=== PATIENT | male | born 1975 | race Caucasian/White ===

== ENCOUNTER 2018-02-11 20:18 | Inpatient (IN) | payer MEDICARE, MEDICAID ==
[~2018-02-11] VITALS: Ht 165.1 cm; Wt 63.5 kg
[~2018-02-11 20:18] MED LIST: AMLO-511 PO; DIVA500T52 PO; OLAN20TA2 PO; PANT40TA25 PO
[2018-02-12] MEDS ORDERED: DiphenhydrAMINE HCL 50 MG/ML VIAL IM ONE
[2018-02-12] MEDS ORDERED: HALOPERIDOL LACTATE 5 MG/ML VIAL IM ONE
[2018-02-12] MEDS ORDERED: LORazepam 2 MG/ML VIAL IM ONE
[2018-02-12 04:20] LABS: BASOPHILS % (AUTO) 0.9 % (0.0-2.0); EOSINOPHILS % (AUTO) 5.6 % (1.0-6.0); HEMATOCRIT 30.9 % (41-53); HEMOGLOBIN 10.6 g/dL (13.5-17.5); LYMPHOCYTES # (AUTO) 2.7 K/uL (1.0-4.8); LYMPHOCYTES % (AUTO) 35.4 % (22.0-44.0); MEAN CORPUSCULAR HEMOGLOBIN 31.8 pg (26.0-34.0); MEAN CORPUSCULAR HGB CONC 34.3 G/dL (31.0-37.0); MEAN CORPUSCULAR VOLUME 93 fL (80-100); MONOCYTES # (AUTO) 0.8 K/uL (0.1-1.0); MONOCYTES % (AUTO) 10.3 % (2.0-9.0); NEUTROPHILS # (AUTO) 3.7 K/uL (1.8-7.7); NEUTROPHILS % (AUTO) 47.8 % (40.0-70.0); PLATELET COUNT (AUTO) 249 K/uL (150-450); RED BLOOD CELL COUNT(AUTO) 3.33 MIL/uL (4.50-5.90); RED CELL DISTRIBUTION WIDTH 16.1 % (11.5-14.5)
[2018-02-12 04:27] LABS: ANION GAP 5 mmol/L (8-16); CARBON DIOXIDE 26 mmol/L (22-29); CHLORIDE 109 mmol/L (98-107); GLOMERULAR FILTR. RATE CALC > 60 mL/min (>60); GLUCOSE,RANDOM 93 mg/dL (70-110); POTASSIUM 4.1 mmol/L (3.5-5.1); SODIUM SERUM 140 mmol/L (136-145); UREA NITROGEN, BLOOD 17 mg/dL (7-18)
[2018-02-12 04:34] LABS: ALANINE AMINOTRANSFERASE 16 U/L (12-78); ALBUMIN 2.6 g/dL (3.4-5.0); ALKALINE PHOSPHATASE 58 U/L (46-116); ASPARTATE AMINOTRANSFERASE 23 U/L (15-37); BILIRUBIN,TOTAL 0.2 mg/dL (0.1-1.0); TOTAL PROTEIN, SERUM 5.9 g/dL (6.4-8.2); VALPROIC ACID 28 mcg/mL (50-100)
[2018-02-12 05:03] LABS: AMPHET/METH SCREEN,URINE NEGATIVE (NEGATIVE); BARBITURATE SCREEN, URINE NEGATIVE (NEGATIVE); BENZODIAZEPINES SCREEN,URINE NEGATIVE (NEGATIVE); CANNABINOID SCREEN,URINE NEGATIVE (NEGATIVE); COCAINE SCREEN,URINE NEGATIVE (NEGATIVE); METHADONE SCREEN, URINE NEGATIVE (NEGATIVE); OPIATE SCREEN,URINE NEGATIVE (NEGATIVE)
[2018-02-12 05:05] LABS: PHENCYCLIDINE SCREEN,URINE NEGATIVE (NEGATIVE)
[2018-02-12] MEDS: LORazepam 2 MG TABLET PO PRN ×2 (10:08→16:25)
[2018-02-12] MEDS: HALOPERIDOL 5 MG TABLET PO PRN (10:08)
[2018-02-12 11:42] VITALS: BP 139/78
[2018-02-12] MEDS ORDERED: PNEUMOCOCCAL VACCINE POLYVALENT 0.5 ML VIAL [PPSV23] IM ONE (11:45)
[2018-02-12] MEDS ORDERED: CloNIDine HCL 0.1 MG TABLET PO PRN (14:00)
[2018-02-12] MEDS ORDERED: ACETAMINOPHEN 325 MG TABLET PO PRN (14:00)
[2018-02-12] MEDS ORDERED: ONDANSETRON HCL 4 MG TABLET PO PRN (14:00)
[2018-02-12] MEDS ORDERED: MAG HYDROX/AL HYDROX/SIMETH ES 30 ML SUSPENSION UDCUP PO PRN (14:00)
[2018-02-12] MEDS ORDERED: PETROLATUM,WHITE 71 GM JELLY TP PRN (14:00)
[2018-02-12] MEDS ORDERED: IBUPROFEN 600 MG TABLET PO PRN (14:00)
[2018-02-12] MEDS ORDERED: BACITRACIN 28.4 GM OINTMENT TP PRN (14:00)
[2018-02-12] MEDS ORDERED: BENZOCAINE/MENTHOL LOZENGE MM PRN (14:00)
[2018-02-12] MEDS ORDERED: LOPERAMIDE HCL 2 MG CAPSULE PO PRN (14:00)
[2018-02-12] MEDS ORDERED: ALBUTEROL SULFATE HFA 90 MCG/PUFF 8 GM INHALER IH PRN (14:00)
[2018-02-12] MEDS ORDERED: MAGNESIUM HYDROXIDE SUSPENSION 30 ML UDCUP PO PRN (14:00)
[2018-02-12 16:00] VITALS: BP 133/85
[2018-02-12 19:00] VITALS: BP 116/73
[2018-02-12] MEDS: DIVALPROEX SODIUM 500 MG ER TABLET PO SCH (20:36)
[2018-02-12] MEDS: OLANZapine 10 MG TABLET PO SCH (20:36)
[2018-02-13 04:21] VITALS: BP 136/98
[2018-02-13] MEDS: LORazepam 2 MG TABLET PO PRN ×2 (08:11→17:08)
[2018-02-13] MEDS: DOCUSATE SODIUM 100 MG CAPSULE PO SCH (08:11)
[2018-02-13] MEDS: AmLODIPine BESYLATE 5 MG TABLET PO SCH (08:11)
[2018-02-13] MEDS: OMEPRAZOLE 20 MG CAPSULE PO SCH (08:11)
[2018-02-13] MEDS: HALOPERIDOL 5 MG TABLET PO PRN (08:11)
[2018-02-13] MEDS: BACITRACIN 28.4 GM OINTMENT TP SCH ×2 (08:12→17:08)
[2018-02-13 09:21] LABS: THYROID STIMULATING HORMONE 1.76 uIU/mL (0.36-3.74)
[2018-02-13 16:00] VITALS: BP 129/85
[2018-02-13] MEDS: DIVALPROEX SODIUM 500 MG ER TABLET PO SCH (20:29)
[2018-02-13] MEDS: OLANZapine 10 MG TABLET PO SCH (20:29)
[2018-02-14 00:06] VITALS: BP 119/76
[2018-02-14 08:13] VITALS: BP 128/79
[2018-02-14] MEDS: DOCUSATE SODIUM 100 MG CAPSULE PO SCH (08:20)
[2018-02-14] MEDS: AmLODIPine BESYLATE 5 MG TABLET PO SCH (08:20)
[2018-02-14] MEDS: LORazepam 2 MG TABLET PO PRN ×2 (08:20→17:01)
[2018-02-14] MEDS: OMEPRAZOLE 20 MG CAPSULE PO SCH (08:20)
[2018-02-14] MEDS: HALOPERIDOL 5 MG TABLET PO PRN (08:20)
[2018-02-14] MEDS: BACITRACIN 28.4 GM OINTMENT TP SCH ×2 (08:21→17:01)
[2018-02-14 17:08] VITALS: BP 129/79
[2018-02-14] MEDS: DIVALPROEX SODIUM 500 MG ER TABLET PO SCH (20:46)
[2018-02-14] MEDS: OLANZapine 10 MG TABLET PO SCH (20:46)
[2018-02-15 02:31] VITALS: BP 129/78
[2018-02-15 08:13] VITALS: BP 126/72
[2018-02-15] MEDS: AmLODIPine BESYLATE 5 MG TABLET PO SCH (08:48)
[2018-02-15] MEDS: OMEPRAZOLE 20 MG CAPSULE PO SCH (08:48)
[2018-02-15] MEDS: DOCUSATE SODIUM 100 MG CAPSULE PO SCH (08:48)
[2018-02-15] MEDS: BACITRACIN 28.4 GM OINTMENT TP SCH ×2 (09:03→16:23)
[2018-02-15] MEDS: HALOPERIDOL 5 MG TABLET PO PRN ×2 (09:09→16:23)
[2018-02-15] MEDS: LORazepam 2 MG TABLET PO PRN ×2 (09:09→16:23)
[2018-02-15 16:43] VITALS: BP 118/77
[2018-02-15] MEDS: OLANZapine 10 MG TABLET PO SCH (20:19)
[2018-02-15] MEDS: DIVALPROEX SODIUM 500 MG ER TABLET PO SCH (20:19)
[2018-02-16 01:31] VITALS: BP 116/73
[2018-02-16] MEDS: OMEPRAZOLE 20 MG CAPSULE PO SCH (09:10)
[2018-02-16] MEDS: DOCUSATE SODIUM 100 MG CAPSULE PO SCH (09:10)
[2018-02-16] MEDS: HALOPERIDOL 5 MG TABLET PO PRN (09:10)
[2018-02-16] MEDS: AmLODIPine BESYLATE 5 MG TABLET PO SCH (09:10)
[2018-02-16] MEDS: LORazepam 2 MG TABLET PO PRN ×3 (09:10→21:07)
[2018-02-16 09:23] VITALS: BP 139/91
[2018-02-16 16:00] VITALS: BP 128/85
[2018-02-16] MEDS: DIVALPROEX SODIUM 500 MG ER TABLET PO SCH (21:07)
[2018-02-16] MEDS: OLANZapine 10 MG TABLET PO SCH (21:07)
[2018-02-16] MEDS: ZOLPIDEM TARTRATE 10 MG TABLET PO PRN (21:07)
[2018-02-17 06:34] VITALS: BP 125/78
[2018-02-17 08:00] VITALS: BP 137/65
[2018-02-17] MEDS: OMEPRAZOLE 20 MG CAPSULE PO SCH (09:30)
[2018-02-17] MEDS: AmLODIPine BESYLATE 5 MG TABLET PO SCH (09:31)
[2018-02-17] MEDS: DOCUSATE SODIUM 100 MG CAPSULE PO SCH (09:31)
[2018-02-17] MEDS: LORazepam 2 MG TABLET PO PRN (16:45)
[2018-02-17 17:33] VITALS: BP 145/100
[2018-02-17] MEDS: DIVALPROEX SODIUM 500 MG ER TABLET PO SCH (20:25)
[2018-02-17] MEDS: OLANZapine 10 MG TABLET PO SCH (20:25)
[2018-02-17] MEDS: ZOLPIDEM TARTRATE 10 MG TABLET PO PRN (20:25)
[2018-02-18 01:19] VITALS: BP 108/74
[2018-02-18 08:14] VITALS: BP 139/89
[2018-02-18] MEDS: HALOPERIDOL 5 MG TABLET PO PRN ×2 (08:14→16:42)
[2018-02-18] MEDS: DOCUSATE SODIUM 100 MG CAPSULE PO SCH (08:14)
[2018-02-18] MEDS: LORazepam 2 MG TABLET PO PRN ×2 (08:14→16:42)
[2018-02-18] MEDS: AmLODIPine BESYLATE 5 MG TABLET PO SCH (08:14)
[2018-02-18] MEDS: OMEPRAZOLE 20 MG CAPSULE PO SCH (08:14)
[2018-02-18 16:00] VITALS: BP 133/88
[2018-02-18] MEDS: OLANZapine 10 MG TABLET PO SCH (20:30)
[2018-02-18] MEDS: DIVALPROEX SODIUM 500 MG ER TABLET PO SCH (20:30)
[2018-02-19 04:47] VITALS: BP 132/78
[2018-02-19 08:10] VITALS: BP 132/84
[2018-02-19] MEDS: DOCUSATE SODIUM 100 MG CAPSULE PO SCH (08:33)
[2018-02-19] MEDS: HALOPERIDOL 5 MG TABLET PO PRN (08:33)
[2018-02-19] MEDS: OMEPRAZOLE 20 MG CAPSULE PO SCH (08:33)
[2018-02-19] MEDS: LORazepam 2 MG TABLET PO PRN (08:33)
[2018-02-19] MEDS: AmLODIPine BESYLATE 5 MG TABLET PO SCH (08:33)
[2018-02-19] MEDS ORDERED: DIVA-78 PO (13:35)
[2018-02-19] MEDS ORDERED: AMLO-511 PO (13:35)
[2018-02-19] MEDS ORDERED: OLAN20TA2 PO (13:35)
== END 2018-02-19 15:26 | disposition home or self-care (01) | DRG 885 ==
LOC: EMS 20:18 → B3A 02-12 06:00
PROVIDERS: ADMIT Psychiatry & Neurology Psychiatry; ATTEND Psychiatry & Neurology Psychiatry
DX: F25.0 Schizoaffective disorder, bipolar type (principal); E46 Unspecified protein-calorie malnutrition; K21.9 Gastro-esophageal reflux disease without esophagitis; J44.9 Chronic obstructive pulmonary disease, unspecified; I10 Essential (primary) hypertension; F17.210 Nicotine dependence, cigarettes, uncomplicated; D64.9 Anemia, unspecified; K59.00 Constipation, unspecified; Z68.23 Body mass index [BMI] 23.0-23.9, adult; Z56.0 Unemployment, unspecified; Z71.6 Tobacco abuse counseling; Z72.89 Other problems related to lifestyle
CPT/HCPCS: 84443; 90686; 90732; 96372; G0480; J1200; J1630; J2060

== ENCOUNTER 2018-02-23 19:32 | Inpatient (IN) | payer MEDICARE, MEDICAID ==
[~2018-02-23] VITALS: Ht 165.1 cm; Wt 66.7 kg
[~2018-02-23 19:32] MED LIST changes: +DIVA-78 PO; -DIVA500T52 PO; -PANT40TA25 PO
[2018-02-23 20:29] LABS: BASOPHILS % (AUTO) 0.9 % (0.0-2.0); EOSINOPHILS % (AUTO) 2.7 % (1.0-6.0); HEMATOCRIT 36.3 % (41-53); HEMOGLOBIN 12.5 g/dL (13.5-17.5); LYMPHOCYTES % (AUTO) 43.4 % (22.0-44.0); MEAN CORPUSCULAR HEMOGLOBIN 32.1 pg (26.0-34.0); MEAN CORPUSCULAR HGB CONC 34.6 G/dL (31.0-37.0); MEAN CORPUSCULAR VOLUME 93 fL (80-100); NEUTROPHILS # (AUTO) 5.1 K/uL (1.8-7.7); PLATELET COUNT (AUTO) 289 K/uL (150-450); RED CELL DISTRIBUTION WIDTH 15.5 % (11.5-14.5)
[2018-02-23 20:40] LABS: ANION GAP 10 mmol/L (8-16); CALCIUM, TOTAL 8.9 mg/dL (8.8-10.5); CARBON DIOXIDE 26 mmol/L (22-29); CHLORIDE 103 mmol/L (98-107); CREATININE 0.85 mg/dL (0.60-1.30); GLOMERULAR FILTR. RATE CALC > 60 mL/min (>60); GLUCOSE,RANDOM 88 mg/dL (70-110); POTASSIUM 3.9 mmol/L (3.5-5.1); SODIUM SERUM 139 mmol/L (136-145); UREA NITROGEN, BLOOD 20 mg/dL (7-18)
[2018-02-23 20:47] LABS: ALANINE AMINOTRANSFERASE 23 U/L (12-78); ALBUMIN 3.8 g/dL (3.4-5.0); ALKALINE PHOSPHATASE 87 U/L (46-116); ASPARTATE AMINOTRANSFERASE 31 U/L (15-37); BILIRUBIN,TOTAL 0.5 mg/dL (0.1-1.0); TOTAL PROTEIN, SERUM 7.7 g/dL (6.4-8.2); VALPROIC ACID 42 mcg/mL (50-100)
[2018-02-23 21:55] LABS: AMPHET/METH SCREEN,URINE NEGATIVE (NEGATIVE); BARBITURATE SCREEN, URINE NEGATIVE (NEGATIVE); BENZODIAZEPINES SCREEN,URINE NEGATIVE (NEGATIVE); CANNABINOID SCREEN,URINE NEGATIVE (NEGATIVE); COCAINE SCREEN,URINE NEGATIVE (NEGATIVE); METHADONE SCREEN, URINE NEGATIVE (NEGATIVE); OPIATE SCREEN,URINE NEGATIVE (NEGATIVE)
[2018-02-23 21:56] LABS: PHENCYCLIDINE SCREEN,URINE NEGATIVE (NEGATIVE)
[2018-02-23] MEDS ORDERED: DiphenhydrAMINE HCL 50 MG/ML VIAL IM ONE (23:00)
[2018-02-23] MEDS ORDERED: HALOPERIDOL LACTATE 5 MG/ML VIAL IM ONE (23:00)
[2018-02-23] MEDS ORDERED: LORazepam 2 MG/ML VIAL IM ONE (23:00)
[2018-02-24 00:20] VITALS: BP 123/79
[2018-02-24 07:15] VITALS: BP 118/76
[2018-02-24] MEDS: HALOPERIDOL 5 MG TABLET PO PRN ×2 (07:37→16:40)
[2018-02-24] MEDS: LORazepam 2 MG TABLET PO PRN ×2 (07:37→16:40)
[2018-02-24 07:41] LABS: BASOPHILS % (AUTO) 0.7 % (0.0-2.0); EOSINOPHILS % (AUTO) 5.4 % (1.0-6.0); HEMOGLOBIN 13.1 g/dL (13.5-17.5); LYMPHOCYTES # (AUTO) 2.5 K/uL (1.0-4.8); LYMPHOCYTES % (AUTO) 32.9 % (22.0-44.0); MEAN CORPUSCULAR HGB CONC 34.4 G/dL (31.0-37.0); MEAN CORPUSCULAR VOLUME 93 fL (80-100); MONOCYTES # (AUTO) 0.9 K/uL (0.1-1.0); MONOCYTES % (AUTO) 11.5 % (2.0-9.0); NEUTROPHILS # (AUTO) 3.8 K/uL (1.8-7.7); NEUTROPHILS % (AUTO) 49.5 % (40.0-70.0); PLATELET COUNT (AUTO) 262 K/uL (150-450); RED BLOOD CELL COUNT(AUTO) 4.08 MIL/uL (4.50-5.90)
[2018-02-24 08:04] LABS: ALANINE AMINOTRANSFERASE 21 U/L (12-78); ALBUMIN 3.4 g/dL (3.4-5.0); ALKALINE PHOSPHATASE 87 U/L (46-116); ANION GAP 6 mmol/L (8-16); ASPARTATE AMINOTRANSFERASE 44 U/L (15-37); BILIRUBIN,TOTAL 0.6 mg/dL (0.1-1.0); CALCIUM, TOTAL 8.7 mg/dL (8.8-10.5); CARBON DIOXIDE 27 mmol/L (22-29); CHLORIDE 105 mmol/L (98-107); CHOL/HDL RATIO 2.5 (4.2-7.3); CHOLESTEROL 150 mg/dL (131-200); CREATININE 0.75 mg/dL (0.60-1.30); FREE T4 (FREE THYROXINE) 0.83 ng/dL (0.76-1.46); GLOMERULAR FILTR. RATE CALC > 60 mL/min (>60); GLUCOSE,RANDOM 80 mg/dL (70-110); HDL CHOLESTEROL 60 mg/dL (40-60); LDL CHOL (CALC.) 82 mg/dL (0-130); SODIUM SERUM 138 mmol/L (136-145); THYROID STIMULATING HORMONE 2.51 uIU/mL (0.36-3.74); TOTAL PROTEIN, SERUM 7.2 g/dL (6.4-8.2); TRIGLYCERIDES 38 mg/dL (15-150); UREA NITROGEN, BLOOD 18 mg/dL (7-18)
[2018-02-24] MEDS ORDERED: IBUPROFEN 600 MG TABLET PO PRN (08:45)
[2018-02-24] MEDS ORDERED: LOPERAMIDE HCL 2 MG CAPSULE PO PRN (08:45)
[2018-02-24] MEDS ORDERED: ALBUTEROL SULFATE HFA 90 MCG/PUFF 8 GM INHALER IH PRN (08:45)
[2018-02-24] MEDS ORDERED: BENZOCAINE/MENTHOL LOZENGE MM PRN (08:45)
[2018-02-24] MEDS ORDERED: MAG HYDROX/AL HYDROX/SIMETH ES 30 ML SUSPENSION UDCUP PO PRN (08:45)
[2018-02-24] MEDS ORDERED: MAGNESIUM HYDROXIDE SUSPENSION 30 ML UDCUP PO PRN (08:45)
[2018-02-24] MEDS ORDERED: ONDANSETRON HCL 4 MG TABLET PO PRN (08:45)
[2018-02-24] MEDS ORDERED: PETROLATUM,WHITE 71 GM JELLY TP PRN (08:45)
[2018-02-24] MEDS ORDERED: BACITRACIN 28.4 GM OINTMENT TP PRN (08:45)
[2018-02-24] MEDS ORDERED: ACETAMINOPHEN 325 MG TABLET PO PRN (08:45)
[2018-02-24] MEDS ORDERED: CloNIDine HCL 0.1 MG TABLET PO PRN (08:45)
[2018-02-24 09:50] VITALS: BP 137/100
[2018-02-24] MEDS: AmLODIPine BESYLATE 5 MG TABLET PO SCH (10:00)
[2018-02-24] MEDS: DIVALPROEX SODIUM 500 MG DR TABLET PO SCH ×2 (12:21→20:25)
[2018-02-24 16:51] VITALS: BP 139/100
[2018-02-24] MEDS: OLANZapine 10 MG TABLET PO SCH (20:25)
[2018-02-24] MEDS: ZOLPIDEM TARTRATE 10 MG TABLET PO PRN (20:25)
[2018-02-25 03:00] VITALS: BP 111/77
[2018-02-25] MEDS: DIVALPROEX SODIUM 500 MG DR TABLET PO SCH ×2 (08:10→20:02)
[2018-02-25] MEDS: AmLODIPine BESYLATE 5 MG TABLET PO SCH (08:12)
[2018-02-25] MEDS: HALOPERIDOL 5 MG TABLET PO PRN ×2 (08:54→16:36)
[2018-02-25] MEDS: LORazepam 2 MG TABLET PO PRN ×2 (08:54→16:35)
[2018-02-25] MEDS ORDERED: AmLODIPine BESYLATE 5 MG TABLET PO SCH (09:00)
[2018-02-25 09:46] VITALS: BP 138/73
[2018-02-25] MEDS: OLANZapine 10 MG TABLET PO SCH (20:02)
[2018-02-25] MEDS: ZOLPIDEM TARTRATE 10 MG TABLET PO PRN (21:16)
[2018-02-26 02:43] VITALS: BP 138/90
[2018-02-26 08:21] VITALS: BP 139/87
[2018-02-26] MEDS: HALOPERIDOL 5 MG TABLET PO PRN ×2 (08:43→19:15)
[2018-02-26] MEDS: AmLODIPine BESYLATE 5 MG TABLET PO SCH (08:43)
[2018-02-26] MEDS: LORazepam 2 MG TABLET PO PRN ×2 (08:43→19:15)
[2018-02-26] MEDS: DIVALPROEX SODIUM 500 MG DR TABLET PO SCH ×2 (08:43→20:50)
[2018-02-26 16:09] VITALS: BP 132/83
[2018-02-26] MEDS: OLANZapine 10 MG TABLET PO SCH (20:50)
[2018-02-26] MEDS: ZOLPIDEM TARTRATE 10 MG TABLET PO PRN (20:50)
[2018-02-27 01:13] VITALS: BP 127/86
[2018-02-27 08:08] VITALS: BP 139/90
[2018-02-27] MEDS: LORazepam 2 MG TABLET PO PRN ×2 (08:53→18:24)
[2018-02-27] MEDS: AmLODIPine BESYLATE 5 MG TABLET PO SCH (08:53)
[2018-02-27] MEDS: DIVALPROEX SODIUM 500 MG DR TABLET PO SCH ×2 (08:57→20:23)
[2018-02-27] MEDS: HALOPERIDOL 5 MG TABLET PO PRN ×2 (10:11→18:24)
[2018-02-27 16:48] VITALS: BP 141/96
[2018-02-27] MEDS: OLANZapine 10 MG TABLET PO SCH (21:02)
[2018-02-28 06:39] VITALS: BP 132/87
[2018-02-28] MEDS: LORazepam 2 MG TABLET PO PRN ×2 (07:58→16:50)
[2018-02-28] MEDS: HALOPERIDOL 5 MG TABLET PO PRN (07:59)
[2018-02-28] MEDS: VALPROIC ACID 250 MG/5 ML SYRUP UDCUP PO SCH ×2 (08:00→21:02)
[2018-02-28] MEDS: AmLODIPine BESYLATE 5 MG TABLET PO SCH (08:00)
[2018-02-28 08:08] VITALS: BP 137/86
[2018-02-28] MEDS ORDERED: HALOPERIDOL LACTATE 5 MG/ML VIAL ONE (08:48)
[2018-02-28] MEDS ORDERED: LORazepam 2 MG/ML VIAL ONE (08:48)
[2018-02-28] MEDS ORDERED: DiphenhydrAMINE HCL 50 MG/ML VIAL ONE (08:48)
[2018-02-28] MEDS ORDERED: DiphenhydrAMINE HCL 50 MG/ML VIAL IM ONE (08:55)
[2018-02-28] MEDS ORDERED: HALOPERIDOL LACTATE 5 MG/ML VIAL IM ONE (08:55)
[2018-02-28] MEDS ORDERED: LORazepam 2 MG/ML VIAL IM ONE (08:55)
[2018-02-28 09:17] VITALS: BP 129/63
[2018-02-28] MEDS ORDERED: HALO5TAB2 PO (11:58)
[2018-02-28] MEDS ORDERED: LOPE2 PO (11:58)
[2018-02-28 16:30] VITALS: BP 139/87
[2018-02-28] MEDS: OLANZapine 10 MG TABLET PO SCH (21:02)
[2018-02-28] MEDS: ZOLPIDEM TARTRATE 10 MG TABLET PO PRN (21:03)
[2018-03-01 00:26] VITALS: BP 127/68
[2018-03-01] MEDS: VALPROIC ACID 250 MG/5 ML SYRUP UDCUP PO SCH ×2 (08:01→20:17)
[2018-03-01] MEDS: LORazepam 2 MG TABLET PO PRN ×2 (08:02→13:46)
[2018-03-01] MEDS: AmLODIPine BESYLATE 5 MG TABLET PO SCH (08:02)
[2018-03-01] MEDS: HALOPERIDOL 5 MG TABLET PO PRN ×2 (08:02→13:46)
[2018-03-01 09:35] VITALS: BP 139/96
[2018-03-01 16:00] VITALS: BP 136/82
[2018-03-01] MEDS: OLANZapine 10 MG TABLET PO SCH (20:17)
[2018-03-01 20:52] VITALS: BP 145/72
[2018-03-02 08:00] VITALS: BP 142/85
[2018-03-02] MEDS: VALPROIC ACID 250 MG/5 ML SYRUP UDCUP PO SCH ×2 (08:29→20:34)
[2018-03-02] MEDS: AmLODIPine BESYLATE 5 MG TABLET PO SCH (08:30)
[2018-03-02] MEDS: LORazepam 2 MG TABLET PO PRN (15:56)
[2018-03-02] MEDS: HALOPERIDOL 5 MG TABLET PO PRN (15:56)
[2018-03-02 16:59] VITALS: BP 140/72
[2018-03-02] MEDS: OLANZapine 10 MG TABLET PO SCH (20:34)
[2018-03-03] MEDS: AmLODIPine BESYLATE 5 MG TABLET PO SCH (07:49)
[2018-03-03] MEDS: HALOPERIDOL 5 MG TABLET PO PRN ×2 (07:49→15:58)
[2018-03-03] MEDS: VALPROIC ACID 250 MG/5 ML SYRUP UDCUP PO SCH ×2 (07:49→21:25)
[2018-03-03] MEDS: LORazepam 2 MG TABLET PO PRN ×2 (07:49→15:58)
[2018-03-03 08:09] VITALS: BP 140/87
[2018-03-03 16:12] VITALS: BP 142/81
[2018-03-03] MEDS: OLANZapine 10 MG TABLET PO SCH (21:25)
[2018-03-04 00:05] VITALS: BP 138/84
[2018-03-04] MEDS: VALPROIC ACID 250 MG/5 ML SYRUP UDCUP PO SCH ×2 (07:56→20:00)
[2018-03-04] MEDS: AmLODIPine BESYLATE 5 MG TABLET PO SCH (07:56)
[2018-03-04] MEDS: LORazepam 2 MG TABLET PO PRN ×2 (07:58→20:01)
[2018-03-04] MEDS: HALOPERIDOL 5 MG TABLET PO PRN ×2 (07:58→20:00)
[2018-03-04 08:09] VITALS: BP 137/87
[2018-03-04 16:30] VITALS: BP 118/84
[2018-03-04] MEDS: OLANZapine 10 MG TABLET PO SCH (20:00)
[2018-03-05 00:03] VITALS: BP 124/78
[2018-03-05] MEDS: AmLODIPine BESYLATE 5 MG TABLET PO SCH (07:56)
[2018-03-05] MEDS: HALOPERIDOL 5 MG TABLET PO PRN (07:56)
[2018-03-05] MEDS: LORazepam 2 MG TABLET PO PRN (07:56)
[2018-03-05] MEDS: VALPROIC ACID 250 MG/5 ML SYRUP UDCUP PO SCH ×2 (07:57→21:14)
[2018-03-05 09:28] VITALS: BP 130/85
[2018-03-05 18:10] VITALS: BP 115/77
[2018-03-05] MEDS: OLANZapine 10 MG TABLET PO SCH (21:14)
[2018-03-06] MEDS: VALPROIC ACID 250 MG/5 ML SYRUP UDCUP PO SCH ×2 (07:47→20:24)
[2018-03-06] MEDS: AmLODIPine BESYLATE 5 MG TABLET PO SCH (07:48)
[2018-03-06] MEDS: HALOPERIDOL 5 MG TABLET PO PRN ×2 (07:48→16:14)
[2018-03-06] MEDS: LORazepam 2 MG TABLET PO PRN ×2 (07:48→16:14)
[2018-03-06 08:09] VITALS: BP 154/75
[2018-03-06 17:38] VITALS: BP 141/81
[2018-03-06] MEDS: OLANZapine 10 MG TABLET PO SCH (20:24)
[2018-03-07 08:03] VITALS: BP 129/94
[2018-03-07] MEDS: AmLODIPine BESYLATE 5 MG TABLET PO SCH (08:05)
[2018-03-07] MEDS: VALPROIC ACID 250 MG/5 ML SYRUP UDCUP PO SCH ×2 (08:05→20:55)
[2018-03-07 17:40] VITALS: BP 144/88
[2018-03-07] MEDS: OLANZapine 10 MG TABLET PO SCH (20:56)
[2018-03-08] MEDS: LORazepam 2 MG TABLET PO PRN (00:03)
[2018-03-08] MEDS: ZOLPIDEM TARTRATE 10 MG TABLET PO PRN (00:03)
[2018-03-08 00:22] VITALS: BP 117/77
[2018-03-08] MEDS: AmLODIPine BESYLATE 5 MG TABLET PO SCH (09:30)
[2018-03-08] MEDS: VALPROIC ACID 250 MG/5 ML SYRUP UDCUP PO SCH ×2 (09:30→20:10)
[2018-03-08 10:29] VITALS: BP 145/87
[2018-03-08 17:45] VITALS: BP 143/98
[2018-03-08] MEDS: OLANZapine 10 MG TABLET PO SCH (20:11)
[2018-03-09 00:03] VITALS: BP 134/84
[2018-03-09 08:05] VITALS: BP 112/77
[2018-03-09] MEDS: AmLODIPine BESYLATE 5 MG TABLET PO SCH (09:10)
[2018-03-09] MEDS: VALPROIC ACID 250 MG/5 ML SYRUP UDCUP PO SCH ×2 (09:10→20:15)
[2018-03-09] MEDS: LORazepam 2 MG TABLET PO PRN (09:10)
[2018-03-09 18:28] VITALS: BP 138/77
[2018-03-09] MEDS: OLANZapine 10 MG TABLET PO SCH (20:15)
[2018-03-10 06:37] VITALS: BP 124/82
[2018-03-10] MEDS: AmLODIPine BESYLATE 5 MG TABLET PO SCH (08:31)
[2018-03-10] MEDS: VALPROIC ACID 250 MG/5 ML SYRUP UDCUP PO SCH ×2 (08:32→20:07)
[2018-03-10] MEDS: LORazepam 2 MG TABLET PO PRN (09:56)
[2018-03-10 19:25] VITALS: BP 113/69
[2018-03-10] MEDS: OLANZapine 10 MG TABLET PO SCH (20:07)
[2018-03-11 06:09] VITALS: BP 141/81
[2018-03-11] MEDS: LORazepam 2 MG TABLET PO PRN (08:18)
[2018-03-11] MEDS: VALPROIC ACID 250 MG/5 ML SYRUP UDCUP PO SCH (08:18)
[2018-03-11] MEDS: AmLODIPine BESYLATE 5 MG TABLET PO SCH (08:18)
[2018-03-11] MEDS ORDERED: VALP250 PO ×2 (08:24)
[2018-03-11] MEDS ORDERED: OLAN10TA3 PO (08:24)
[2018-03-11 09:35] VITALS: BP 147/94
== END 2018-03-11 14:25 | disposition home or self-care (01) | DRG 885 ==
LOC: EMS 19:34 → UNDOADMIN 22:16 → B2S 22:16 → B3A 22:16 → 3EC 03-01 18:00 → 3EI 03-07 20:15
PROVIDERS: ADMIT Psychiatry & Neurology Psychiatry; ATTEND Psychiatry & Neurology Psychiatry
DX: F25.0 Schizoaffective disorder, bipolar type (principal); S02.609A Fracture of mandible, unspecified, initial encounter for closed fracture; F17.200 Nicotine dependence, unspecified, uncomplicated; Z71.6 Tobacco abuse counseling; F41.9 Anxiety disorder, unspecified; G47.00 Insomnia, unspecified; I10 Essential (primary) hypertension; J44.9 Chronic obstructive pulmonary disease, unspecified; K21.9 Gastro-esophageal reflux disease without esophagitis; S02.2XXA Fracture of nasal bones, initial encounter for closed fracture; Z79.899 Other long term (current) drug therapy; Z28.21 Immunization not carried out because of patient refusal
CPT/HCPCS: 83036; 84439; 84443; 87081; 96372; 99406; G0480; J1200; J1630; J2060

== ENCOUNTER 2018-02-28 11:41 | Emergency (ER) | payer MEDICAID, MEDICARE, OTHER ==
[~2018-02-28] VITALS: Ht 167.6 cm; Wt 70.5 kg
[2018-02-28] MEDS ORDERED: LOPE2 PO (11:58)
[2018-02-28] MEDS ORDERED: HALO5TAB2 PO (11:58)
[2018-02-28] MEDS ORDERED: LIDOCAINE 1% 10 ML VIAL INJ ONE (12:00)
[2018-02-28] MEDS ORDERED: BACITRACIN 0.9 GM PACKET OINTMENT TP ONE (12:00)
[2018-02-28 16:01] VITALS: BP 120/97
== END 2018-02-28 16:06 | disposition home or self-care (01) ==
LOC: EMS 11:42
DX: S02.2XXA Fracture of nasal bones, initial encounter for closed fracture (principal); S02.40DA Maxillary fracture, left side, initial encounter for closed fracture; S01.01XA Laceration without foreign body of scalp, initial encounter; F31.9 Bipolar disorder, unspecified; F20.9 Schizophrenia, unspecified; I10 Essential (primary) hypertension; F17.210 Nicotine dependence, cigarettes, uncomplicated; Y04.2XXA Assault by strike against or bumped into by another person, initial encounter; Y93.89 Activity, other specified; Y92.89 Other specified places as the place of occurrence of the external cause; Y99.8 Other external cause status
CPT/HCPCS: 12001; 70450; 70486; 99284; J3490

== ENCOUNTER 2019-03-15 09:25 | Inpatient (IN) | payer MEDICARE, MEDICAID ==
[~2019-03-15] VITALS: Ht 177.8 cm; Wt 69.1 kg
[~2019-03-15 09:25] MED LIST changes: -AMLO-511 PO; +AMLO5TAB9 PO; -DIVA-78 PO; +OLAN10TA3 PO; -OLAN20TA2 PO; +VALP250C48 PO
[2019-03-15] MEDS ORDERED: DiphenhydrAMINE HCL 50 MG/ML VIAL IM ONE (09:45)
[2019-03-15] MEDS ORDERED: HALOPERIDOL 5 MG TABLET PO ONE (09:45)
[2019-03-15] MEDS ORDERED: LORazepam 2 MG TABLET PO ONE (09:45)
[2019-03-15] MEDS ORDERED: LORazepam 2 MG/ML VIAL IM ONE (09:45)
[2019-03-15] MEDS ORDERED: HALOPERIDOL LACTATE 5 MG/ML VIAL IM ONE (09:45)
[2019-03-15] MEDS ORDERED: DiphenhydrAMINE HCL 50 MG CAPSULE PO ONE (09:45)
[2019-03-15] MEDS ORDERED: LISI-661 PO (09:48)
[2019-03-15] MEDS ORDERED: RISP4 PO (09:48)
[2019-03-15 11:38] LABS: BASOPHILS % (AUTO) 0.8 % (0.0-2.0); EOSINOPHILS % (AUTO) 1.7 % (1.0-6.0); HEMATOCRIT 32.7 % (41-53); HEMOGLOBIN 11.3 g/dL (13.5-17.5); LYMPHOCYTES # (AUTO) 1.2 K/uL (1.0-4.8); LYMPHOCYTES % (AUTO) 12.9 % (22.0-44.0); MEAN CORPUSCULAR HEMOGLOBIN 30.9 pg (26.0-34.0); MEAN CORPUSCULAR HGB CONC 34.5 G/dL (31.0-37.0); MEAN CORPUSCULAR VOLUME 90 fL (80-100); MONOCYTES # (AUTO) 0.8 K/uL (0.1-1.0); MONOCYTES % (AUTO) 8.5 % (2.0-9.0); NEUTROPHILS # (AUTO) 7.1 K/uL (1.8-7.7); NEUTROPHILS % (AUTO) 76.1 % (40.0-70.0); PLATELET COUNT (AUTO) 273 K/uL (150-450); RED BLOOD CELL COUNT(AUTO) 3.65 MIL/uL (4.50-5.90); RED CELL DISTRIBUTION WIDTH 13.5 % (11.5-14.5)
[2019-03-15 11:48] LABS: ANION GAP 9 mmol/L (8-16); CALCIUM, TOTAL 8.4 mg/dL (8.8-10.5); CARBON DIOXIDE 25 mmol/L (22-29); CHLORIDE 101 mmol/L (98-107); CREATININE 0.74 mg/dL (0.60-1.30); GLOMERULAR FILTR. RATE CALC > 60 mL/min (>60); GLUCOSE,RANDOM 106 mg/dL (70-110); POTASSIUM 4.1 mmol/L (3.5-5.1); SODIUM SERUM 135 mmol/L (136-145); UREA NITROGEN, BLOOD 16 mg/dL (7-18)
[2019-03-15] MEDS ORDERED: OLANZapine 5 MG RAPDIS TABLET PO PRN (12:00)
[2019-03-15] MEDS ORDERED: ZOLPIDEM TARTRATE 10 MG TABLET PO PRN (12:00)
[2019-03-15 12:14] LABS: ALANINE AMINOTRANSFERASE 33 U/L (12-78); ALBUMIN 3.2 g/dL (3.4-5.0); ALKALINE PHOSPHATASE 84 U/L (46-116); ASPARTATE AMINOTRANSFERASE 36 U/L (15-37); BILIRUBIN,TOTAL 0.2 mg/dL (0.1-1.0); TOTAL PROTEIN, SERUM 6.2 g/dL (6.4-8.2)
[2019-03-15] MEDS ORDERED: MAG HYDROX/AL HYDROX/SIMETH ES 30 ML SUSPENSION UDCUP PO PRN (13:30)
[2019-03-15] MEDS ORDERED: ACETAMINOPHEN 325 MG TABLET PO PRN (13:30)
[2019-03-15] MEDS ORDERED: TUBERCULIN, PURIFIED PROTEIN DERIVATIVE 5 TU/0.1 ML SYRINGE ID ONE (13:30)
[2019-03-15] MEDS ORDERED: PROMETHAZINE HCL 25 MG TABLET PO PRN (13:30)
[2019-03-15] MEDS ORDERED: MAGNESIUM HYDROXIDE SUSPENSION 30 ML UDCUP PO PRN (13:30)
[2019-03-15] MEDS ORDERED: HydrOXYzine PAMOATE 50 MG CAPSULE PO PRN (13:30)
[2019-03-15] MEDS ORDERED: GuaiFENesin/D-METHORPHAN [SUGAR-FREE] 200-20MG/10 ML SYRUP UDCUP PO PRN (13:30)
[2019-03-15] MEDS ORDERED: LOPERAMIDE HCL 2 MG CAPSULE PO PRN (13:30)
[2019-03-15 13:52] LABS: AMPHET/METH SCREEN,URINE NEGATIVE (NEGATIVE); BARBITURATE SCREEN, URINE NEGATIVE (NEGATIVE); BENZODIAZEPINES SCREEN,URINE NEGATIVE (NEGATIVE); CANNABINOID SCREEN,URINE NEGATIVE (NEGATIVE); COCAINE SCREEN,URINE NEGATIVE (NEGATIVE); METHADONE SCREEN, URINE NEGATIVE (NEGATIVE); OPIATE SCREEN,URINE NEGATIVE (NEGATIVE)
[2019-03-15 13:53] LABS: PHENCYCLIDINE SCREEN,URINE NEGATIVE (NEGATIVE)
[2019-03-15] MEDS: THIAMINE HCL 100 MG TABLET PO SCH (20:50)
[2019-03-15] MEDS ORDERED: OLANZapine 7.5 MG TABLET PO SCH (21:00)
[2019-03-16 00:12] VITALS: BP 126/86
[2019-03-16] MEDS ORDERED: INFLUENZA VIRUS VACCINE QVS 2019-20 (3YR+)/PF 60 MCG/0.5 ML SYRINGE IM ONE (07:15)
[2019-03-16 08:03] LABS: HEMOGLOBIN A1C 5.6 % (4.5-6.2)
[2019-03-16 08:07] VITALS: BP 140/67
[2019-03-16 08:35] LABS: CHOL/HDL RATIO 3.7 (4.2-7.3); FREE T4 (FREE THYROXINE) 1.24 ng/dL (0.76-1.46); THYROID STIMULATING HORMONE 1.06 uIU/mL (0.36-3.74)
[2019-03-16] MEDS: THIAMINE HCL 100 MG TABLET PO SCH ×2 (08:43→16:15)
[2019-03-16] MEDS: MULTIVITAMINS WITH MINERALS, THERAPEUTIC TABLET PO SCH (08:43)
[2019-03-16] MEDS: LISINOPRIL 10 MG TABLET PO SCH (08:43)
[2019-03-16] MEDS: FOLIC ACID 1 MG TABLET PO SCH (08:43)
[2019-03-16 16:46] VITALS: BP 136/70
[2019-03-16] MEDS: OLANZapine 10 MG TABLET PO SCH (21:28)
[2019-03-17 00:24] VITALS: BP 129/79
[2019-03-17 08:10] VITALS: BP 139/84
[2019-03-17] MEDS: THIAMINE HCL 100 MG TABLET PO SCH ×2 (08:10→16:33)
[2019-03-17] MEDS: LISINOPRIL 10 MG TABLET PO SCH (08:10)
[2019-03-17] MEDS: FOLIC ACID 1 MG TABLET PO SCH (08:10)
[2019-03-17] MEDS: MULTIVITAMINS WITH MINERALS, THERAPEUTIC TABLET PO SCH (08:10)
[2019-03-17 16:23] VITALS: BP 136/74
[2019-03-17] MEDS: OLANZapine 10 MG TABLET PO SCH (20:32)
[2019-03-18 06:57] VITALS: BP 126/83
[2019-03-18 08:13] VITALS: BP 126/80
[2019-03-18] MEDS: LISINOPRIL 10 MG TABLET PO SCH (08:54)
[2019-03-18] MEDS: THIAMINE HCL 100 MG TABLET PO SCH ×2 (08:54→16:34)
[2019-03-18] MEDS: MULTIVITAMINS WITH MINERALS, THERAPEUTIC TABLET PO SCH (08:54)
[2019-03-18] MEDS: FOLIC ACID 1 MG TABLET PO SCH (08:54)
[2019-03-18 16:11] VITALS: BP 138/76
[2019-03-18] MEDS: OLANZapine 10 MG TABLET PO SCH (20:24)
[2019-03-19 00:27] VITALS: BP 146/95
[2019-03-19 08:08] VITALS: BP 114/68
[2019-03-19] MEDS: THIAMINE HCL 100 MG TABLET PO SCH ×2 (08:12→17:02)
[2019-03-19] MEDS: MULTIVITAMINS WITH MINERALS, THERAPEUTIC TABLET PO SCH (08:12)
[2019-03-19] MEDS: FOLIC ACID 1 MG TABLET PO SCH (08:12)
[2019-03-19] MEDS: LISINOPRIL 10 MG TABLET PO SCH (08:12)
[2019-03-19] MEDS ORDERED: HALOPERIDOL LACTATE 5 MG/ML VIAL ONE (14:21)
[2019-03-19] MEDS ORDERED: LORazepam 2 MG/ML VIAL ONE (14:21)
[2019-03-19] MEDS ORDERED: DiphenhydrAMINE HCL 50 MG/ML VIAL ONE (14:22)
[2019-03-19] MEDS ORDERED: DiphenhydrAMINE HCL 50 MG/ML VIAL IM ONE (15:00)
[2019-03-19] MEDS ORDERED: HALOPERIDOL LACTATE 5 MG/ML VIAL IM ONE (15:00)
[2019-03-19] MEDS ORDERED: LORazepam 2 MG/ML VIAL IM ONE (15:00)
[2019-03-19 16:04] VITALS: BP 134/76
[2019-03-19] MEDS: OLANZapine 10 MG TABLET PO SCH (20:27)
[2019-03-20 08:04] VITALS: BP 137/90
[2019-03-20] MEDS: MULTIVITAMINS WITH MINERALS, THERAPEUTIC TABLET PO SCH (08:29)
[2019-03-20] MEDS: LISINOPRIL 10 MG TABLET PO SCH (08:29)
[2019-03-20] MEDS: THIAMINE HCL 100 MG TABLET PO SCH ×2 (08:29→16:31)
[2019-03-20] MEDS: FOLIC ACID 1 MG TABLET PO SCH (08:29)
[2019-03-20] MEDS: LORazepam 2 MG TABLET PO PRN (09:39)
[2019-03-20 16:25] VITALS: BP 134/85
[2019-03-20] MEDS: OLANZapine 10 MG TABLET PO SCH (20:38)
[2019-03-21 02:29] VITALS: BP 121/71
[2019-03-21 08:10] VITALS: BP 144/70
[2019-03-21] MEDS: THIAMINE HCL 100 MG TABLET PO SCH ×3 (08:42→17:00)
[2019-03-21] MEDS: LISINOPRIL 10 MG TABLET PO SCH (08:43)
[2019-03-21] MEDS: FOLIC ACID 1 MG TABLET PO SCH (08:43)
[2019-03-21] MEDS: MULTIVITAMINS WITH MINERALS, THERAPEUTIC TABLET PO SCH (08:43)
[2019-03-21] MEDS: LORazepam 2 MG TABLET PO PRN (13:34)
[2019-03-21 16:05] VITALS: BP 122/83
[2019-03-21] MEDS: OLANZapine 10 MG TABLET PO SCH (20:12)
[2019-03-22 00:02] VITALS: BP 118/75
[2019-03-22 08:21] VITALS: BP 128/75
[2019-03-22] MEDS: FOLIC ACID 1 MG TABLET PO SCH (08:59)
[2019-03-22] MEDS: THIAMINE HCL 100 MG TABLET PO SCH ×2 (08:59→16:36)
[2019-03-22] MEDS: MULTIVITAMINS WITH MINERALS, THERAPEUTIC TABLET PO SCH (08:59)
[2019-03-22] MEDS: LISINOPRIL 10 MG TABLET PO SCH (09:00)
[2019-03-22 16:06] VITALS: BP 136/72
[2019-03-22] MEDS: OLANZapine 10 MG TABLET PO SCH (20:31)
[2019-03-23 00:12] VITALS: BP 112/65
[2019-03-23 08:12] VITALS: BP 138/93
[2019-03-23] MEDS: LISINOPRIL 10 MG TABLET PO SCH (08:33)
[2019-03-23] MEDS: THIAMINE HCL 100 MG TABLET PO SCH ×2 (08:33→17:00)
[2019-03-23] MEDS: FOLIC ACID 1 MG TABLET PO SCH (08:33)
[2019-03-23] MEDS: MULTIVITAMINS WITH MINERALS, THERAPEUTIC TABLET PO SCH (08:33)
[2019-03-23 16:04] VITALS: BP 151/80
[2019-03-23 18:54] VITALS: BP 138/84
[2019-03-23] MEDS: OLANZapine 10 MG TABLET PO SCH (20:18)
[2019-03-23] MEDS: LORazepam 2 MG TABLET PO PRN (20:18)
[2019-03-24 06:23] VITALS: BP 122/80
[2019-03-24 08:07] VITALS: BP 139/86
[2019-03-24] MEDS: FOLIC ACID 1 MG TABLET PO SCH (08:48)
[2019-03-24] MEDS: LISINOPRIL 10 MG TABLET PO SCH (08:48)
[2019-03-24] MEDS: MULTIVITAMINS WITH MINERALS, THERAPEUTIC TABLET PO SCH (08:48)
[2019-03-24] MEDS: THIAMINE HCL 100 MG TABLET PO SCH ×2 (08:48→16:31)
[2019-03-24] MEDS: RisperiDONE 3 MG TABLET PO SCH ×4 (08:48→17:00)
[2019-03-24 16:04] VITALS: BP 138/90
[2019-03-24] MEDS: OLANZapine 10 MG TABLET PO SCH (20:34)
[2019-03-24] MEDS: LORazepam 2 MG TABLET PO PRN (22:13)
[2019-03-25 00:17] VITALS: BP 145/97
[2019-03-25 08:17] VITALS: BP 133/87
[2019-03-25] MEDS: MULTIVITAMINS WITH MINERALS, THERAPEUTIC TABLET PO SCH (08:19)
[2019-03-25] MEDS: LISINOPRIL 10 MG TABLET PO SCH (08:20)
[2019-03-25] MEDS: FOLIC ACID 1 MG TABLET PO SCH (08:20)
[2019-03-25] MEDS: LORazepam 2 MG TABLET PO PRN (08:20)
[2019-03-25] MEDS: THIAMINE HCL 100 MG TABLET PO SCH (08:20)
[2019-03-25] MEDS: RisperiDONE 3 MG TABLET PO SCH ×2 (08:27→16:47)
[2019-03-25 16:31] VITALS: BP 135/84
[2019-03-25] MEDS: OLANZapine 10 MG TABLET PO SCH ×2 (20:40→20:50)
[2019-03-26 06:10] VITALS: BP 133/78
[2019-03-26 08:09] VITALS: BP 130/70
[2019-03-26] MEDS: MULTIVITAMINS WITH MINERALS, THERAPEUTIC TABLET PO SCH (09:31)
[2019-03-26] MEDS: LORazepam 2 MG TABLET PO PRN (09:32)
[2019-03-26] MEDS: RisperiDONE 3 MG TABLET PO SCH ×3 (09:32→17:00)
[2019-03-26] MEDS: LISINOPRIL 10 MG TABLET PO SCH (09:32)
[2019-03-26 16:33] VITALS: BP 129/79
[2019-03-26] MEDS: OLANZapine 10 MG TABLET PO SCH (20:36)
[2019-03-27 08:17] VITALS: BP 137/88
[2019-03-27] MEDS: MULTIVITAMINS WITH MINERALS, THERAPEUTIC TABLET PO SCH (08:20)
[2019-03-27] MEDS: LISINOPRIL 10 MG TABLET PO SCH (08:20)
[2019-03-27] MEDS: RisperiDONE 3 MG TABLET PO SCH ×2 (08:20→17:00)
[2019-03-27] MEDS: LORazepam 2 MG TABLET PO PRN (08:20)
[2019-03-27 16:07] VITALS: BP 109/62
[2019-03-27] MEDS: OLANZapine 10 MG TABLET PO SCH (20:33)
[2019-03-28 01:35] VITALS: BP 147/88
[2019-03-28 08:10] VITALS: BP 130/86
[2019-03-28] MEDS: RisperiDONE 3 MG TABLET PO SCH ×2 (08:27→16:38)
[2019-03-28] MEDS: LISINOPRIL 10 MG TABLET PO SCH (08:27)
[2019-03-28] MEDS: MULTIVITAMINS WITH MINERALS, THERAPEUTIC TABLET PO SCH (08:27)
[2019-03-28] MEDS: LORazepam 2 MG TABLET PO PRN (08:27)
[2019-03-28 16:07] VITALS: BP 125/62
[2019-03-28] MEDS: OLANZapine 10 MG TABLET PO SCH (20:30)
[2019-03-29 05:57] VITALS: BP 120/94
[2019-03-29] MEDS: RisperiDONE 3 MG TABLET PO SCH ×2 (08:18→16:38)
[2019-03-29] MEDS: MULTIVITAMINS WITH MINERALS, THERAPEUTIC TABLET PO SCH (08:18)
[2019-03-29] MEDS: LISINOPRIL 10 MG TABLET PO SCH (08:18)
[2019-03-29 16:03] VITALS: BP 138/72
[2019-03-29] MEDS: OLANZapine 10 MG TABLET PO SCH (20:34)
[2019-03-30 01:04] VITALS: BP 147/85
[2019-03-30 08:05] VITALS: BP 144/88
[2019-03-30] MEDS: LISINOPRIL 10 MG TABLET PO SCH (08:22)
[2019-03-30] MEDS: LORazepam 2 MG TABLET PO PRN (08:22)
[2019-03-30] MEDS: MULTIVITAMINS WITH MINERALS, THERAPEUTIC TABLET PO SCH (08:22)
[2019-03-30] MEDS: RisperiDONE 3 MG TABLET PO SCH ×2 (09:00→16:29)
[2019-03-30 16:03] VITALS: BP 135/72
[2019-03-30] MEDS: OLANZapine 10 MG TABLET PO SCH (20:41)
[2019-03-31 04:58] VITALS: BP 122/81
[2019-03-31 08:09] VITALS: BP 120/80
[2019-03-31] MEDS: MULTIVITAMINS WITH MINERALS, THERAPEUTIC TABLET PO SCH (08:11)
[2019-03-31] MEDS: RisperiDONE 3 MG TABLET PO SCH ×3 (08:11→17:15)
[2019-03-31] MEDS: LISINOPRIL 10 MG TABLET PO SCH (08:11)
[2019-03-31 16:03] VITALS: BP 138/82
[2019-03-31] MEDS: OLANZapine 10 MG TABLET PO SCH (20:37)
[2019-04-01 00:04] VITALS: BP 114/73
[2019-04-01] MEDS: MULTIVITAMINS WITH MINERALS, THERAPEUTIC TABLET PO SCH (08:04)
[2019-04-01] MEDS: LISINOPRIL 10 MG TABLET PO SCH (08:05)
[2019-04-01] MEDS: RisperiDONE 3 MG TABLET PO SCH (08:05)
[2019-04-01 08:18] VITALS: BP 140/90
[2019-04-01] MEDS ORDERED: RISP3 PO (11:04)
[2019-04-01] MEDS ORDERED: OLAN10TA3 PO (11:05)
== END 2019-04-01 13:40 | disposition home or self-care (01) | DRG 885 ==
LOC: EMS 09:32 → B2X 13:27
PROVIDERS: ADMIT Psychiatry & Neurology Psychiatry; ATTEND Psychiatry & Neurology Psychiatry
DX: F25.0 Schizoaffective disorder, bipolar type (principal); E46 Unspecified protein-calorie malnutrition; D64.9 Anemia, unspecified; F17.210 Nicotine dependence, cigarettes, uncomplicated; I10 Essential (primary) hypertension; J44.9 Chronic obstructive pulmonary disease, unspecified; K21.9 Gastro-esophageal reflux disease without esophagitis; F41.9 Anxiety disorder, unspecified; Z59.0 Homelessness; Z78.1 Physical restraint status; Z91.14 Patient's other noncompliance with medication regimen; Z91.19 Patient's noncompliance with other medical treatment and regimen; Z68.21 Body mass index [BMI] 21.0-21.9, adult; Z79.899 Other long term (current) drug therapy
CPT/HCPCS: 83036; 84439; 84443; 86592; G0480; J1200; J1630; J2060